=== PATIENT | male | born 1995 | race Two or more races ===

== ENCOUNTER 2019-07-23 02:09 | Emergency (ER) | payer SELFPAY ==
[~2019-07-23] VITALS: Ht 170.2 cm; Wt 63.5 kg
[2019-07-23 02:09] VITALS: BP 134/75
--- NOTE | 2019-07-23 02:49 | NUR ---
BIBRA. TO ER BED 9. AAOX4. HOWEVER SLOW TO RESPOND. AMBULATORY. CAME IN FOR DIFFICULTY BREATHING 2ND TO ASTHMA. PT JUST GOT OUT OF CARE HOME PER PT STATEMENT AND DOES NOT HAVE ANYMORE MEDICATION. BREATHING IS EVEN AND UNLABORED. MD AT BEDSIDE FOR EVAL. ORDERS RECEIVED, NOTED AND CARRIED OUT.
[2019-07-23] MEDS ORDERED: ALBUTEROL FS 2.5 MG/0.5 ML VIAL.NEB ONE (03:29)
[2019-07-23] MEDS ORDERED: ALBUTEROL FS 2.5 MG/0.5 ML VIAL.NEB NEB ONE (03:30)
--- NOTE | 2019-07-23 04:23 | NUR ---
Patient discharged to home in stable condition. Written and verbal after care instructions given. Patient verbalizes understanding of instruction. Pt ambulatory with a steady gait
== END 2019-07-23 04:23 | disposition home or self-care (01) ==
LOC: ER 02:14
DX: J45.909 Unspecified asthma, uncomplicated (principal); F32.9 Major depressive disorder, single episode, unspecified; R06.02 Shortness of breath